=== PATIENT | female | born 1980 | race American Indian/Alaskan Native ===

== ENCOUNTER 2017-10-21 15:07 | Emergency (ER) | payer MEDICAID ==
[2017-10-21 15:14] VITALS: BP 121/84; PULSE 100; RESP 20; TEMP 98; O2SAT 99
[2017-10-21] MEDS ORDERED: Lidocaine 5% Patch TD STA (15:42)
--- NOTE | 2017-10-21 15:42 | C.PDOC ---
History Of Present Illness 37-year-old female presents to the ED for exacerbation of left shoulder pain which has been ongoing for 1 month. Initial onset was 2 months ago after patient was lifting heavy objects at work. She states it has gradually worsened over the last month. Patient reports sleeping on the left side, and now complains of neck stiffness and increased pain on movement. No trauma. She otherwise denies any numbness, weakness, or tingling. Patient notes limited improvement with Tylenol. Time Seen by Provider: 10/21/17 15:27 Chief Complaint (Nursing): Upper Extremity Problem/Injury History Per: Patient History/Exam Limitations: no limitations Onset/Duration Of Symptoms: Days Current Symptoms Are (Timing): Still Present Exacerbating Factor(s): Strenuous Use Of Affected Area, Movement Past Medical History Reviewed: Historical Data, Nursing Documentation, Vital Signs Vital Signs: Last Vital Signs Temp 98.0 F 10/21/17 15:10 Pulse 100 H 10/21/17 15:10 Resp 20 10/21/17 15:10 BP 121/84 10/21/17 15:10 Pulse Ox 99 10/21/17 15:54 Family History: States: No Known Family Hx - Social History Hx Tobacco Use: Yes Hx Alcohol Use: Yes Hx Substance Use: No - Immunization History Hx Tetanus Toxoid Vaccination: No Hx Influenza Vaccination: No Hx Pneumococcal Vaccination: No Review Of Systems Except As Marked, All Systems Reviewed And Found Negative. Musculoskeletal: Positive for: Neck Pain (stiffness), Shoulder Pain Neurological: Negative for: Weakness, Numbness, Other (paresthesias) Physical Exam - Physical Exam Appears: Non-toxic, No Acute Distress Skin: Warm, Dry, No Rash Head: Atraumatic, Normacephalic Eye(s): bilateral: Normal Inspection, PERRL, EOMI Oral Mucosa: Moist Neck: Decreased ROM (limited left lateral rotation), No Midline Cervical Tenderness, Other (Torticollis of the neck, with diffuse spasm on palpation of the left lateral neck and trapezius) Chest: Symmetrical Respiratory: No Accessory Muscle Use, Other (NARD) Extremity: Left: Limited ROM To Joint (Limited abduction of left upper extremity ), Other ( Full internal and external rotation of left shoulder, with (+) beer can sign), Bilateral: Atraumatic Pulses: Left Radial: Normal, Right Radial: Normal Neurological/Psych: Oriented x3, Normal Speech, Normal Motor, Normal Sensation ED Course And Treatment O2 Sat by Pulse Oximetry: 99 (RA) Pulse Ox Interpretation: Normal Medical Decision Making Medical Decision Making: Impression: Rotator cuff tear with torticollis and muscle spasm Time: 15:42 Initial Plan: --Flexeril 10 mg PO --Toradol 60 mg IM --Prednisone 60 mg PO --Lidoderm patch applied Patient provided with pain control in the ER and given RXs for Medrol pack, Lidoderm patches, Motrin 600mg, Flexeril, and Tylenol 500mg. Sling placed to left arm. Advised patient to follow up with orthopedist for further evaluation, referral provided. Disposition Counseled Patient/Family Regarding: Diagnosis, Need For Followup, Rx Given - Disposition Referrals: [facility] [Outside] [facility] [Outside] Ashley Bell MD [Staff Provider] - Disposition: HOME/ ROUTINE Disposition Time: 15:39 Condition: IMPROVED Prescriptions: Acetaminophen [Tylenol Extra Strength] 2 tab PO Q6 #30 tablet Cyclobenzaprine [Flexeril] 10 mg PO TID #15 tab Ibuprofen [Motrin] 600 mg PO Q6 #30 tab Lidocaine 5% [Lidoderm] 1 ea TD PRN PRN #10 patch PRN Reason: Pain, Moderate (4-7) Methylprednisolone [Medrol] 4 mg PO DAILY #1 packet Instructions: Rotator Cuff Injury (DC), Torticollis (DC) Forms: [facility] (Japanese) - Clinical Impression Clinical Impression: Rotator cuff syndrome, Torticollis, acute - Scribe Statement The provider has reviewed the documentation as recorded by the Scribe (Charlene Velazquez) Provider Attestation: All medical record entries made by the Scribe were at my direction and personally dictated by me. I have reviewed the chart and agree that the record accurately reflects my personal performance of the history, physical exam, medical decision making, and the department course for this patient. I have also personally directed, reviewed, and agree with the discharge instructions and disposition.
[2017-10-21] MEDS ORDERED: Lidocaine 5% Patch TD ONE (15:53)
== END 2017-10-21 15:59 | disposition home or self-care (01) ==
LOC: C.ER 15:07
DX: M75.102 Unspecified rotator cuff tear or rupture of left shoulder, not specified as traumatic (principal); M43.6 Torticollis
CPT/HCPCS: 96372; 99285; J1885